=== PATIENT | female | born 1960 | race Caucasian/White ===

== ENCOUNTER 2022-04-21 18:49 | Emergency (ER) | payer BC ==
--- OUTSIDE RECORDS SUMMARY | 2022-04-21 18:54 | XMS REPORT | Continuity of Care Document ---
:[address] [facility] t Address [address] [place] [address] Care Team Providers Name Role Phone KRYSTAL PRAKASH Primary Care Physician Unavailable Enrique AMARO, Andrea Robert Attending Clinician ANDREA NUNEZ Attending Clinician Unavailable Carole Ricci Attending Clinician Blair Shankar Attending Clinician Andrea Nunez Attending Clinician Andrea Nunez Admitting Clinician Problems Condition Condition Condition Status Onset Resolution Last Treating Co mments Source Name Details Category Date Date Treatment Clinician Date , , Diagnosis Active 2017-06-21 Me moria PAIN IN PAIN IN 05-17 21:55:00 l LEFT KNEE LEFT KNEE 00:00: Herm gary Active 00 05/17/2017 [facility] Asthma Asthma Problem Resolve 2020-06-06 Mem oria (disorder) (disorder) d 00:16:33 l Resolved Tate Problem 06/06/2020 Medical [facility] Anemia Anemia Problem Active 2020-06-06 Isaiah deanne (disorder) (disorder) 00:16:33 l Active Grawn Problem 06/06/2020 Medical [facility] Hypertensi Problem Active 2020-06-06 M emoria ve Hypertensi 00:16:33 l disorder, ve [place] systemic disorder, arterial systemic (disorder) arterial (disorder) Active Problem 06/06/2020 Medical [facility] Hypothyroi Problem Active 2020-06-06 M emoria dism Hypothyroi 00:16:33 l (disorder) dism Adam n (disorder) Active Problem 06/06/2020 Medical Group,[facility] Morbid Morbid Problem Active 2020-06-06 Isaiah deanne obesity obesity 00:16:33 l (disorder) (disorder) He rmann Active Problem 06/06/2020 Medical Group,[facility] ILLNESS, ILLNESS, Diagnosis Active 2017-06-21 Memoria UNSPECIFIE UNSPECIFIE 21:55:00 l D D Active Tate [facility] History of Past Illness Condition Condition Condition Status Onset Resolution Last Treating Co mments Source Name Details Category Date Date Treatment Clinician Date Encounter Encounter Problem 2019-082020-06-04 2020-06-04 Memoria for for 0-08 00:51:48 00:51:48 l gynecologi gynecologi 22:44: He mag ronny ronny 00 examinatio examinatio n n (general) (general) (routine) (routine) without without abnormal abnormal findings findings 06/02/2020 0 Medical Group Encounter Encounter Problem 2019-082020-06-04 2020-06-04 Memoria for for 0-08 00:51:48 00:51:48 l screening screening 22:44: Herm gary mammogram mammogram 00 for for malignant malignant neoplasm neoplasm of breast of breast 06/02/2020 06/04/2020 Medical Group Postmenopa Postmenop Problem 2018-2019-04-07 2019-04-07 Memoria usa ausal 09-18 13:15:59 13:15:59 l atrophic atrophic 02:42: Adam rodriguez vaginitis vaginitis 00 09/18/2018 04/07/2019 Medical Group Other Other Problem 2017-2018-03-03 2018-03-03 M emoria obesity obesity 4- 11:28:43 11:28:43 l due to due to 18:31: Tate excess excess 00 calories calories 11/25/2017 03/03/2018 Medical Group Encounter Encounter Problem 2018-03-03 2018-03-03 Memoria for for 4- 11:28:43 11:28:43 l screening screening 14:20: Herm gary for for 00 malignant malignant neoplasm neoplasm of cervix of cervix 11/25/2017 03/03/2018 Medical Group Allergies, Adverse Reactions, Alerts Allergy Allergy Status Severity Reaction(s) Onset Inactive Treating Comm ents Source Name Type Date Date Clinician NO KNOWN Allergy Active [facility] Adhesive Adhesive Active Dee Ybarra iodine iodine Active Asia Ybarra Social History Social Habit Start Date Stop Date Quantity Comments Source Tobacco use and 2021-03-28 2021-03-[address] [facility] kes exposure 00:00:00 00:00:00 [facility] Social History 2017-11-25 2017-11-25 [facility] 14:18:35 14:18:35 Sex Ass[birth year] At [birth year] [facility] 00:00:00 00:00:00 [facility] Smoking Status Start Date Stop Date Source Former smoker 2021-03-28 00:00:00 2021-03-28 00:00:00 [facility] Medications Ordered Filled Start Stop Current Ordering Indication Dosage Frequency Signature Comments Components Source Medication Medication Date Date Medication? Clinician (SIG) Name Name montelukast Yes 10mg QD Take [address] [facility] [address] (SINGULAIR) 8-03 by mouth Luke s 10 mg 11:01: nightly. Medical tablet 22 Center lisinopril- Yes 1{tbl} QD Take [address] hydroCHLORO 8-03 tablet by Geovanna es thiazide 11:01: mouth Medical (PRINZIDE,Z 21 daily. Center ESTORETIC) 10-12.5 mg per tablet cyanocobala Yes INJECT [address] min 7-18 ML WEEKLY [facility] (VITAMIN 00:00: X 4 WEEK Medic al B-12) 1,000 [address] THEN [address] mcg/mL MONTHLY injection GIVE INSULIN SYRINGES TOO albuterol Yes INHALE ONE [facility] HFA 7-08 PUFF BU [facility] (VENTOLIN 00:00: MOUTH Medical HFA) 90 00 THREE Center mcg/actuati TIMES A on inhaler DAY methylPREDN Yes TAKE [address] ISolone 6-16 TABLETS ON [facility] (MEDROL 00:00: DAY 1 Medica l DOSEPACK) 4 00 DIRECTED Cent er mg tablet ON PACKAGE AND DECREASE BY 1 TAB EACH DAY FOR A TOTAL OF 6 DAYS levothyroxi Yes 75ug QD Take [address] ne 6-09 mcg by [facility] (SYNTHROID, 00:00: mouth Medic al LEVOTHROID) 00 daily. Center 75 MCG tablet 2019-08 Yes 2 mg = 1 Memoria Estradiol 0-08 ea, VAG, l 0.715705 18:18: q3mo, # 1 Herm gary MG/HR 00 ea, 3 Vaginal Refill(s), Ring 167.64, [Estring] cm, 06/01/20 15:23:00 CDT, Height, 118.352, kg, 06/01/20 15:23:00 CDT, Weight { Yes See Memoria (Azithromyc 1-16 Instructio l in 250 MG 02:43: ns, Take 2 He rmann Oral Tablet 00 tablets by [Zithromax] mouth the ) } Pack first day [Z-PAKS] then 1 tablet by mouth days 2-5., X 5 day, # 6 tab, 0 Refill(s), Pharmacy: [facility] #[id number] albuterol 2019-0 Yes 2 puff, Memor ia 90 mcg/inh 1-16 INHALATION l inhalation 02:43: , Q4H, PRN H ermann aerosol 00 for wheezing, # 1 ea, 1 Refill(s), Pharmacy: [facility] #[id number] predniSONE Yes 40 mg = 2 Me moria 20 mg oral 1-16 tab, PO, l tablet 02:43: Daily, X 5 Shameka nn 00 day, # 10 tab, 0 Refill(s), Pharmacy: [facility] #[id number] { No See Memoria (Azithromyc 1-16 Instructio l in 250 MG 02:25: ns, Take 2 He rmann Oral Tablet 00 tablets by [Zithromax] mouth the ) } Pack first day [Z-PAKS] then 1 tablet by mouth days 2-5., X 5 day, # 6 tab, 0 Refill(s), Pharmacy: [facility] #[id number] albuterol 2020-0 No 2 puff, Memor ia 90 mcg/inh 1-16 INHALATION l inhalation 02:25: , Q4H, PRN H ermann aerosol 00 for wheezing, # 1 ea, 1 Refill(s), Pharmacy: [facility] #[id number] predniSONE 2020-0 No 40 mg = 2 Me moria 20 mg oral -16 tab, PO, l tablet 02:25: Daily, X 5 Shameka nn 00 day, # 10 tab, 0 Refill(s), Pharmacy: [facility] #[id number] Alendronic 2020-0 No 0 Memoria acid 35 MG -16 Refill(s) l Oral Tablet 02:25: Adam n 00 icosapent 2019-0 No 0 Memoria ethyl 1000 -16 Refill(s) l MG Oral 02:25: Grawn Capsule 00 [Vascepa] Albuterol 2019-0 No 3 mL, Memoria 0.833 MG/ML 09-10 Route: l / 02:24: NEB, Grawn Ipratropium 00 Dosing Tillson Weight 0.167 MG/ML 104.602, Inhalant kg, ONCE, Solution Start [DuoNeb] date: 09/09/19 20:24:00 [facility], Stop date: 09/09/19 20:24:00 [facility] Dexamethaso 2019-0 No 10 mg, Isaiah deanne ne 09-10 Route: IM, l 02:23: ONCE, Grawn 00 Dosing Weight 104.602, kg, Priority: STAT, Start date: 09/09/19 20:23:00 [facility], Stop date: 09/09/19 20:23:00 [facility] Estradiol 0 Yes See Memoria 0.1 MG/ML 09-17 Instructio l Vaginal 20:11: ns, Insert Herm gary Cream 00 2gm [Estrace] vaginally at bedtime nightly x 2 weeks then reduce dose to twice weekly x4 weeks then reduce to weekly thereafter , # 1 tube, 3 Refill(s), Pharmacy: [facility] #[id number] ospemifene 2017- Yes 60 mg = 1 Me moria 60 mg oral 4-27 tab, PO, l tablet 18:28: Daily, # Grawn 00 90 tab, 3 Refill(s) Ospemifene 2018-0 Yes 60 mg = 1 Me moria 60 MG Oral 4-02 tab, PO, l Tablet 14:22: Daily, # Grawn [Osphena] 00 90 tab, 3 Refill(s) Acetaminoph 2016-08 Yes 2 tab, PO, Memoria en 325 MG / 0-20 Q4H, PRN l Hydrocodone 15:37: Pain Score Grawn Bitartrate 00 4-6, 0 10 MG Oral Refill(s) Tablet Aspirin 2016-08 Yes 325 mg = 1 Isaiah deanne 0-20 tab, PO, l 15:37: Q12H, 0 Grawn 00 Refill(s) Sertraline 2016-08 No Notes: Memor ia 0-20 (Same as: l 14:00: Zoloft) Tate 00 lisinopril 2016-08 No Notes: Memor ia 0-20 (Same as: l 14:00: Prinivil, Grawn 00 Zestril) Hydrochloro 2016-08 No 1 tab, Isaiah deanne thiazide 0-20 Route: PO, l 12.5 MG / 14:00: Drug Form: Ulices hathaway Lisinopril 00 TAB, 10 MG Oral Dosing Tablet Weight 103.182, kg, QAM, Start date: 06/14/17 9:00:00 CDT, Duration: 30 day, Stop date: 07/13/17 9:00:00 [facility] hydrochloro 2016-08 No Notes: Isaiah deanne thiazide 0-20 (Same as: l 14:00: Hydrodiuri Grawn 00 l). Give with food. Thyroxine 2016-08 No Notes: Memori a 0-20 Take 1 l 11:30: hour Grawn 00 before or 2 hours after meal; Enteral feeds may interefere with the absorption of this medication . (Same as:Synthro id, Levothroid ) Triiodothyr 2016-08 No Notes: Isaiah deanne onine 0-20 (Same as: l 11:30: Cytomel) Tate 00 ceFAZolin + 2016-08 No Notes: Isaiah deanne sodium 0-19 (Same As: l chloride 23:00: Ancef, Grawn 0.9% INJ 00 Kefzol) 100 mL MEDICATION WASTE Product Size: 1000 mg Product Wasted: ___ mg Ketorolac 2016-08 No 4 days Memor ia 0-19 l 23:00: MEDICATION Tate 00 WASTE Product Size: 30 mg Product Wasted: ___ mg Docusate 2016-08 No 100 mg, 1 Isaiah deanne Sodium 100 0-19 cap, l MG Oral 22:00: Route: PO, Herm gary Capsule Drug form: CAP, BID, Dosing Weight 103.182, kg, Start date: 06/13/17 17:00:00 CDT, Duration: 30 day, Stop date: 07/13/17 9:00:00 [facility] Aspirin 2016-08 No 325 mg, 1 Memor ia 0-19 tab, l 22:00: Route: PO, Grawn Drug form: TAB, Q12H, Dosing Weight 103.182, kg, For patients with risk of bleeding, Start date: 06/13/17 17:00:00 CDT, Duration: 30 day, Stop date: 07/13/17 9:00:00 [facility] Sodium 2016-08 No 25 mL, Memoria Chloride 0-19 Route: IV, l 0.9% IV 21:15: Start Grawn 00 date: 06/13/17 16:15:00 CDT, Duration: 30 day, Stop date: 07/13/17 15:14:00 [facility], PRN Line Flush BD Normal 2016-08 No Notes: Memori a Saline 0-19 (Same as: l Flush 21:15: BD Grawn 00 Posiflush) Cefazolin 2016-08 No 1 gm, Memoria 0-19 Route: l 21:00: IVPB, Drug form: INJ, Q8H, Dosing Weight 103.182, kg, Start date: 06/13/17 16:00:00 CDT, Duration: 1 doses or times, Stop date: 06/13/17 16:00:00 CDT, ABX Indication : Surgical Prophylaxi s Midazolam 2016-08 No 2 mg, Memoria 0-19 Route: l 18:53: IVP, Drug Tate form: INJ, ONCE, Dosing Weight 103.182, kg, Start date: 06/13/17 13:53:00 CDT, Stop date: 06/13/17 13:53:00 CDT Morphine 2016-08 No 2 mg, 1 Memori a 0-19 mL, Route: l 18:01: IVP, Drug Tate form: SOLN, Q3H, Dosing Weight 103.182, kg, PRN Pain Score 1-3, Start date: 06/13/17 13:01:00 CDT, Duration: 30 day, Stop date: 07/13/17 13:00:00 [facility] Ondansetron 2016-08 No Notes: Isaiah deanne 0-19 (Same as: l 18:01: Zofran) MEDICATION WASTE Product Size: 4 mg Product Wasted: ___ mg Acetaminoph 2016-08 No Notes: Do M emoria en 325 MG / 0-19 not exceed l Hydrocodone 18:01: 4gm/day of Tate Bitartrate 00 acetaminop 10 MG Oral hen. (Same Tablet as: [place] 325/10) Lactated 2016-08 No 1,000 mL, Isaiah deanne Ringers 0-19 Rate: 100 l 1,000 mL 18:01: ml/hr, Infuse over: 10 hr, Route: IV, Dosing Weight 103.182 kg, Total Volume: 1,000, Start date: 06/13/17 13:01:00 CDT, Duration: 30 day, Stop date: 07/13/17 13:00:00 [facility] ketOROLAC 2016-08 No IV, ONCE Isaiah deanne (ANES) 0-19 l 17:56: ondansetron 2016-08 No Route: IV, Memoria (ANES) 0-19 Drug form: l 17:47: INJ, ONCE, Stop date: 06/13/17 12:47:00 CDT esmolol 2016-08 No Route: IV, Isaiah deanne (ANES) 0-19 Drug form: l 17:24: INJ, ONCE, Stop date: 06/13/17 12:24:00 CDT morphine 2016-08 No Route: IV, Mem oria Sulfate 0-19 Drug form: l (ANES) + 16:58: INJ, ONCE, Her wade Premix Stop date: Diluent 06/13/17 Sodium 11:58:00 Chloride CDT 0.9% (ANES) lidocaine 2016-08 No Route: IV, Me moria (ANES) 0-19 Drug form: l 16:13: INJ, ONCE, Stop date: 06/13/17 11:13:00 CDT ropivacaine 2016-08 No Notes: Isaiah deanne 0-19 Same as: l 16:10: Naropin Diphenhydra 2016-08 No 12.5 mg, Me moria mine 019 Route: l 16:09: IVP, Drug form: INJ, Q6H, Dosing Weight 103.182, kg, PRN Itching, Start date: 06/13/17 11:09:00 CDT, Duration: 30 day, Stop date: 07/13/17 11:08:00 [facility] Glycopyrrol 2016-08 No 0.2 mg, Mem oria ate 019 Route: l 16:09: IVP, Grawn 00 Q5Min, Dosing Weight 103.182, kg, PRN Bradycardi a, Start date: 06/13/17 11:09:00 CDT, Duration: 3 doses or times, Stop date: Limited # of times Ondansetron 2016-08 No 4 mg, Memor ia 019 Route: l 16:09: IVP, ONCE, Dosing Weight 103.182, kg, PRN Nausea & Vomiting, Start date: 06/13/17 11:09:00 CDT Hydromorpho 2016-08 No 0.5 mg, Mem oria ne 0-19 Route: l 16:09: IVP, Grawn 00 Q5Min, Dosing Weight 103.182, kg, PRN Pain Score 7-10, Start date: 06/13/17 11:09:00 CDT, Duration: 4 doses or times, Stop date: Limited # of times Atropine 2016-08 No 0.2 mg, Memori a 0-19 Route: l 16:09: IVP, Tate 00 Q5Min, Dosing Weight 103.182, kg, PRN Other -See Comment, as needed; for symptomati c pulse rate < 80% of mean 50 BPM, Start date: 06/13/17 11:09:00 CDT, Duration: 30 day, Stop date: 07/13/17 10:08:00 [facility] Flumazenil 2016-08 No 0.2 mg, Isaiah deanne 019 Route: l 16:09: IVP, PRN, Tate 00 Dosing Weight 103.182, kg, PRN Benzodiaze pine Reversal, Initial dose, Start date: 06/13/17 11:09:00 CDT, Duration: 30 day, Stop date: 07/13/17 10:08:00 [facility] Naloxone 2016-08 No 0.4 mg, Memori a 0-19 Route: l 16:09: IVP, Grawn 00 Q2MIN, Dosing Weight 103.182, kg, PRN Narcotic Reversal, Start date: 06/13/17 11:09:00 CDT, Duration: 8 doses or times, Stop date: Limited # of times Hydralazine 2016-08 No 10 mg, Isaiah deanne 0-19 Route: l 16:09: IVP, Tate 00 Q20Min, Dosing Weight 103.182, kg, PRN Elevated BP, Start date: 06/13/17 11:09:00 CDT, Duration: 2 doses or times, Stop date: Limited # of times Labetalol 2016-08 No 10 mg, Memori a 0-19 Route: l 16:09: IVP, Grawn 00 Q5Min, Dosing Weight 103.182, kg, PRN Elevated BP, Start date: 06/13/17 11:09:00 CDT, Duration: 5 doses or times, Stop date: Limited # of times Morphine 2016-08 No 2 mg, Memoria 0-19 Route: l 16:09: IVP, Tate 00 Q5Min, Dosing Weight 103.182, kg, PRN Pain Score 4-6, Start date: 06/13/17 11:09:00 CDT, Duration: 5 doses or times, Stop date: Limited # of times famotidine 2016-08 No Route: IV, M emoria (ANES) 0-19 Drug form: l 16:08: INJ, ONCE, Stop date: 06/13/17 11:08:00 CDT fentaNYL 2016-08 No Route: IV, Mem oria (ANES) 0-19 Drug form: l 16:08: INJ, ONCE, Stop date: 06/13/17 11:08:00 CDT midazolam 2016-08 No Route: IV, Me moria (ANES) 0-19 Drug form: l 16:08: SOLN, ONCE, Stop date: 06/13/17 11:08:00 CDT ePHEDrine 2016-08 No Route: IV, Me moria (ANES) 0-19 Drug form: l 16:03: INJ, ONCE, Stop date: 06/13/17 11:03:00 CDT propofol 2016-08 No Route: IV, Mem oria (ANES) 0-19 Drug form: l 16:03: INJ, ONCE, Tate 00 Stop date: 06/13/17 11:03:00 CDT acetaminoph 2016-08 No Route: IV, Memoria en (ANES) 0-19 Drug form: l (ANES) 15:40: INJ, Start Shameka nn date: 06/13/17 10:40:00 CDT, Stop date: 06/13/17 11:40:00 CDT sodium 2016-08 No Route: IV, Memor ia chloride 0-19 Drug form: l 0.9% 50 ml 15:26: INJ, Start H ermann INJ (ANES) 00 date: + 06/13/17 tranexamic 10:26:00 acid (ANES) CDT, Stop (ANES) date: 06/13/17 11:26:00 CDT propofol 2016-08 No Route: IV, Mem oria (ANES) 0-19 Drug form: l (ANES) 15:18: INJ, Start Shameka nn date: 06/13/17 10:18:00 CDT, Stop date: 06/13/17 11:18:00 CDT sodium 2016-08 No Route: IV, Memor ia chloride 0-19 Drug form: l 0.9% 100 ml 15:10: INJ, Start Grawn INJ (ANES) 00 date: + ceFAZolin 06/13/17 (ANES) 10:10:00 (ANES) CDT, Stop date: 06/13/17 11:10:00 CDT LR 1000 mL 2016-08 No Route: IV, M emoria INJ (ANES) 0-19 Total l 15:07: Volume: Grawn 00 1,000, Start date: 06/13/17 10:07:00 CDT, Stop date: 06/13/17 11:07:00 CDT vancomycin 2016-08 No Route: IV, M emoria (ANES) 0-19 Drug form: l (ANES) 15:00: INJ, Start Shameka nn date: 06/13/17 10:00:00 CDT, Stop date: 06/13/17 11:00:00 CDT 72 HR 2016-08 No 1 patch, Memoria Scopolamine 0-19 Route: l 0.0139 14:00: TOP, Drug Adam n MG/HR 00 Form: Transdermal ERFILM, Patch Dosing Weight 103.182, kg, PRE OP, Start date: 06/13/17 9:00:00 CDT, Duration: 30 day, Stop date: 07/13/17 7:59:00 [facility] Cyklokapron 2016-08 No Notes: Isaiah deanne + sodium 0-19 (Same As: l chloride 05:00: Cyklokapro Her wade 0.9% INJ 00 n) 100 mL Ofirmev 2016-08 No Notes: Memoria 0-19 Infuse l 04:00: over 15 Grawn 00 minutes Do not exceed 4gm/day of acetaminop hen MEDICATION WASTE Product Size: 1000 mg Product Wasted: ___ mg vancomycin 2016-08 No 2001 mg: Me moria + sodium 0-19 infuse l chloride 04:00: over 2.5 Shameka nn 0.9% 250 mL 00 hours INJ (for IV MEDICATION set) 250 mL WASTE Product Size: 1000 mg Product Wasted: ___ mg CeleBREX 2016-08 No Notes: Memoria 0-19 NSAID. l 04:00: Please Grawn 00 check indication . Not for seizure. (Same As: CeleBREX) ceFAZolin 2016-08 No Notes: Memori a 0-19 Same as: l 04:00: Ancef Grawn 00 dexamethaso 2016-08 No Notes: Isaiah deanne ne 0-19 Concentrat l 04:00: ion: Tate 00 4mg/ml Trazodone 2016-08 Yes 100 mg = 2 Me moria Hydrochlori 0-10 tab, PO, l de 50 MG 13:23: Bedtime, 0 Her wade Oral Tablet 00 Refill(s) naproxen 2016-08 No 500 mg = 1 Mem oria 500 mg oral 0-10 tab, PO, l tablet 13:23: PRN, 0 Tate 00 Refill(s) sertraline 2016-08 Yes 100 mg = 1 M emoria 100 mg oral 0-10 tab, PO, l tablet 13:22: QAM, 0 Tate 00 Refill(s) Hydrochloro 2016-08 No 1 tab, PO, Memoria thiazide 0-10 QAM, 0 l 12.5 MG / 13:22: Refill(s) Her wade Lisinopril 00 10 MG Oral Tablet liothyronin 2016-08 Yes 5 Memori a e 5 mcg 0-10 microgram l oral tablet 13:22: = 1 tab, He rmann 00 PO, QAM, 0 Refill(s) levothyroxi 2016-08 Yes 75 Memori a ne 75 mcg 0-10 microgram l (0.075 mg) 13:22: = 1 tab, Her wade oral tablet 00 PO, QAM, 0 Refill(s) Whitney 2016-08 Yes 180 mg, Memoria 0-10 PO, QAM, 0 l 13:21: Refill(s) Grawn 00 Immunizations Ordered Immunization Filled Immunization Date Status Commen ts Source Name Name influenza virus 2017-06-14 Completed [facility] vaccine, inactivated 16:56:00 [facility] Vital Signs Vital Name Observation Time Observation Value Comments Source HEIGHT 2021-03-28 10:52:00 167.6 cm WEIGHT 2021-03-28 10:52:00 111.131 kg Heart rate 2021-07-14 09:45:00 69 /min [facility] Body height 2021-07-14 09:45:00 167.6 cm [facility] Body weight 2021-07-14 09:45:00 112.265 kg [facility] BMI 2021-07-14 09:45:00 39.95 kg/m2 [facility] Oxygen saturation in 2021-07-14 09:45:00 97 /min [facility] Arterial blood by Medical Ce nter Pulse oximetry Systolic blood 2021-07-14 09:45:00 136 mm[Hg] [facility] pressure [facility] Diastolic blood 2021-07-14 09:45:00 83 mm[Hg] [facility] Systolic (mm Hg) 2020-06-01 20:23:00 Isaiah rial Tate Diastolic (mm Hg) 2020-06-01 20:23:00 Mem orial [place] Heart Rate 2020-06-01 20:23:00 [facility] Height 2020-06-01 20:23:00 167.64 cm Memorial [place] Weight 2020-06-01 20:23:00 [facility] [place] BMI Calculated 2020-06-01 20:23:00 Memori al [place] Systolic (mm Hg) 2019-09-10 02:25:00 Isaiah rial Grawn Diastolic (mm Hg) 2019-09-10 02:25:00 Mem orial Tate Heart Rate 2019-09-10 02:25:00 [facility] [place] Temperature Oral (F) 2019-09-10 02:25:00 98.0 F [facility] [place] Weight 2019-09-10 02:25:00 [facility] [place] Height 2018-09-17 19:51:00 165.1 cm [facility] [place] Weight 2018-09-17 19:51:00 [facility] [place] BMI Calculated 2018-09-17 19:51:00 Memori al [place] Systolic (mm Hg) 2018-09-17 19:51:00 Isaiah rial Grawn Diastolic (mm Hg) 2018-09-17 19:51:00 Mem orial [place]wn Temperature Oral (F) 2018-09-17 19:51:00 97.9 F [facility] [place] Heart Rate 2018-09-17 19:51:00 [facility] [place] Height 2017-11-25 14:10:00 165.1 cm [facility] [place] Weight 2017-11-25 14:10:00 [facility] [place] Temperature Oral (F) 2017-11-25 14:10:00 98.2 F [facility] [place] Systolic (mm Hg) 2017-11-25 14:10:00 Isaiah rial Grawn Diastolic (mm Hg) 2017-11-25 14:10:00 Mem orial Gra[place] Heart Rate 2017-11-25 14:10:00 [facility] [place] BMI Calculated 2017-11-25 14:10:00 Memori al [place] Heart Rate 2017-06-14 17:00:00 [facility] [place] Systolic (mm Hg) 2017-06-14 17:00:00 Isaiah rial Tate Diastolic (mm Hg) 2017-06-14 17:00:00 Mem orial Tate Temperature Oral (F) 2017-06-14 13:00:00 98.4 F [facility] [place] Systolic (mm Hg) 2017-06-14 13:00:00 Isaiah rial Grawn Diastolic (mm Hg) 2017-06-14 13:00:00 Mem orial Tate Respitory Rate 2017-06-14 13:00:00 Memori al [place] Heart Rate 2017-06-14 13:00:00 [facility] [place] Heart Rate 2017-06-14 09:00:00 [facility] [place] Temperature Oral (F) 2017-06-14 09:00:00 98.6 F [facility] [place] Respitory Rate 2017-06-14 09:00:00 Memkia al [place] Systolic (mm Hg) 2017-06-14 09:00:00 Isaiah rial Gra[place] Diastolic (mm Hg) 2017-06-14 09:00:00 Mem orial Gra[place] Respitory Rate 2017-06-14 05:00:00 Memori al [place] Temperature Oral (F) 2017-06-14 05:00:00 98.9 F [facility] [place] BMI Calculated 2017-06-04 12:54:00 Dee al Tate Weight 2017-06-04 12:54:00 [facility] [place] Height 2017-06-04 12:54:00 165.1 cm [facility] Procedures Procedure Date / Time Performed Performing Clinician [facility] e JOINT 2021-07-17 08:19:16 Andrea Nunez [facility] Medical ASPIRATION/INJECTION Center Mammogram - screening 2018-04-12 05:00:00 Mariamakia pendleton [place] Cervical cytology 2017-11-25 05:00:00 Kamilla Kush ermann screening<sup>1</sup> Colonoscopy 2010-08-26 00:00:00 Kamilla Her wade section 1984-08-26 00:00:00 [facility] Ulices rmann Foot repair<sup>2</sup> [facility] Gastric [facility] Grawn bypass<sup>3</sup> Plan of Care Planned Activity Planned Date Details Comments Source Future Scheduled 2022-04-26 INFLUENZA VACCINE (#1) [facility] 00:00:00 [code = INFLUENZA Medical Ce nter VACCINE (#1)] Future Scheduled 2021-08-[address] [facility] 00:00:00 (12+) [code = Medical Center DEPRESSION SCREENING (12+)] Future Scheduled 2009 SHINGLES VACCINES ([address] [facility] 00:00:00 2) [code = SHINGLES Medical Center VACCINES (1 of 2)] Future Scheduled 2004 Lipid panel (procedure) [facility] 00:00:00 [code = 49066091] Medical Ce nter Future Scheduled 1980 Screening for malignant [facility] 00:00:00 neoplasm of cervix Medical C enter (procedure) [code = 728711162] Future Scheduled 1978 DTAP/TDAP/TD VACCINES [facility] 00:00:00 (1 - Tdap) [code = Medical C enter DTAP/TDAP/TD VACCINES (1 - Tdap)] Future Scheduled 1977 HEPATITIS C SCREENING [facility] 00:00:00 [code = HEPATITIS C Medical Center SCREENING] Future Scheduled 1964 COVID-19 VACCINE (#1) [facility] 00:00:00 [code = COVID-[address] VACCINE (#1)] Future Scheduled 1959 Screening for malignant [facility] 00:00:00 neoplasm of breast Medical C enter (procedure) [code = 446976766] Future Scheduled 1959 CT Colonography (combo) [facility] 00:00:00 [code = CT Colonography [facility] (combo)] Future Scheduled 1959 Screening for malignant [facility] Test 00:00:00 neoplasm of colon Medical Ce nter (procedure) [code = 212237413] Future Scheduled 1959 Screening for malignant [facility] Test 00:00:00 neoplasm of colon [facility] (procedure) [code = [id number]] Future Scheduled 1959 Screening for malignant [facility] 00:00:00 neoplasm of colon [facility] (procedure) [code = [id number]] Future Scheduled 1959 Screening for malignant [facility] 00:00:00 neoplasm of colon [facility] (procedure) [code = [id number]] Future Scheduled 1959 Sigmoidoscopy [code [facility] Start End Encounter Admission Attending Care Care Encounter Source Date/Time Date/Time Type Type Clinicians Facility Department ID 2021-07-14 2021-07-14 Office MARISSA Nunez [id number] 09:15:00 10:52:52 Visit [facility] 2021-07-14 2021-07-14 Outpatient ENRIQUE [facility] [id number] 09:14:06 10:52:52 [facility] 2021-07-14 2021-07-14 Travel [facility] [id number] [facility] 00[facility]00 00:00:00 [facility] 2021-03-28 2021-03-28 Outpatient ENRIQUE [facility] [id number] 00:00:00 00:00:00 [facility] 2020-06-02 2020-06-04 Phone nullFlavo MG [employer] [id number] Memoria 17:29:58 04:59:59 Message r [facility] Adam n 2020-06-02 2020-06-03 Outpatient MHMG [facility] [id number] 12:29:58 23:59:59 01 2020-06-01 2020-06-02 OP Founder nullFlavo [facility] [employer] 40 [id number] Memoria 20:20:00 04:59:59 Clinic r The [address] Adam n 2020-06-01 2020-06-01 Outpatient Ricci, MHMG MHMG [id number] 15:20:00 23:59:59 Caroletalia Hemphill 2020-06-01 2020-06-01 Outpatient MHIE MHIE [id number] Memoria 15:20:00 15:20:00 04 angelica Ybarra 2019-11-10 2019-11-10 Ambulatory nullFlavo [facility]MG [employer] 4 [id number] Memoria 20:20:00 20:20:00 Pre-Reg r The [address] Adam n 2019-11-10 2019-11-10 Outpatient MHIE MHIE [id number] Memoria 15:20:00 15:20:00 03 angelica RodriguezTate 2019-11-10 2019-11-10 Outpatient Ricci, MHMG MHMG [id number] 15:20:00 15:20:00 Caroletalia Hemphill 2019-09-10 2019-09-10 Outpatient nullFlavo MH Urgent [id number] Memoria 02:00:00 05:59:59 r Care 02 angelica He 2019-09-09 2019-09-09 Outpatient Kohatsu, MHMG MG [id number] 20:00:00 23:59:59 Blair Merlyn Cancino 2019-09-09 2019-09-09 Outpatient MHIE MHIE [id number] Memoria 20:00:00 20:00:00 02 angelica Ybarra 2018-09-17 2018-09-18 Outpatient nullFlavo [facility]MG TRIAGE LICENSED PRACTICAL NURSE 4 [id number] Memoria 19:50:00 05:59:59 r The 01 [facility] Adam 2018-09-17 2018-09-17 Outpatient Ricci, MHMG MG [id number] 13:50:00 23:59:59 Carole Honorio [facility] 2018-09-17 2018-09-17 Outpatient Ricci, MHMG MG [id number] 13:50:00 23:59:59 Carole [facility] 2018-09-17 2018-09-17 Outpatient MHIE MHIE [id number] Memoria 13:50:00 13:50:00 01 angelica Ybarra 2017-12-23 2017-12-25 Outside nullFlavo MG TRIAGE LICENSED PRACTICAL NURSE [id number] Memoria 17:19:00 04:59:59 Medical r The 00 [facility] Adam 2017-12-23 2017-12-24 Outpatient MG MG [id number] 12:19:00 23:59:59 00 2017-12-23 2017-12-24 Outpatient MHMG MG [id number] 12:19:00 23:59:59 00 2017-12-09 2017-12-10 Outpatient nullFlavo [facility] [id number] Memoria 13:39:00 04:59:00 r Outpatient 00 l Imaging The [facility] 2017-12-09 2017-12-09 Outpatient Ricci, MH37 [facility] [id number] 08:39:00 23:59:00 Carole Latoya [facility] 2017-11-25 2017-11-26 Outpatient nullFlavo MG TRIAGE LICENSED PRACTICAL NURSE 4 [id number] Memoria 14:00:00 04:59:59 r The 00 [facility] 2017-11-25 2017-11-25 Outpatient Ricci, [facility] [id number] 09:00:00 23:59:59 Carole 00 Joby 2017-11-25 2017-11-25 Outpatient REJI [facility] [id number] Memoria 09:00:00 09:00:00 00 l Tate 2017-06-13 2017-06-14 Inpatient Darcy [facility] [id number] Memoria 11:41:00 19:48:00 r Tate 00 l [facility] 2017-06-13 2017-06-14 Outpatient Enrique, [facility] [id number] 06:41:00 14:48:00 Andrea Robert 00 Results Test Description Test Time Test Comments Results Result Comments Source CHEM PANEL 2017-06-14 10:10:00 Test Item Value Reference Range Interpretation Comme nts Globulin (test code = Globulin) 2.1 2.7-4.2 [facility]2017-10-20 10:10:00 Test Item Value Reference Range Interpretation Comments Total Protein (test code = Total 5.1 6.4-8.4 Protein) [id number] 10:10:00 Test Item Value Reference Range Interpretation Comments Hct (test code = Hct) 29.5 36.0-48.0 [id number] 10:10:00 Test Item Value Reference Range Interpretation Comments Hgb (test code = Hgb) 9.7 12.0-16.0 [facility]2017-10-20 10:10:00 Test Item Value Reference Range Interpretation Comments eGFR (test code = eGFR) 84 [facility]2017-10-20 10:10:00 Test Item Value Reference Range Interpretation Comments Creatinine Lvl (test code = Creatinine 0.78 0.50-1.40 Lvl) [facility]2017-10-20 10:10:00 Test Item Value Reference Range Interpretation Comments Glucose Lvl (test code = Glucose Lvl) 98 70-99 [facility]2017-10-20 10:10:00 Test Item Value Reference Range Interpretation Comments AST (test code = AST) 13 See_Comment [Auto mated message] The system which ge nerated this result transmit rose reference range : <=37. The reference range was not used to interpr et this result as gregory l/abnormal. [facility]2017-10-20 10:10:00 Test Item Value Reference Range Interpretation Comments ALT (test code = ALT) 17 See_Comment [Auto mated message] The system which ge nerated this result transmit rose reference range : <=65. The reference range was not used to interpr et this result as gregory l/abnormal. [facility]2017-10-20 10:10:00 Test Item Value Reference Range Interpretation Comments CO2 (test code = CO2) 27 24-32 [facility]2017-10-20 10:10:00 Test Item Value Reference Range Interpretation Comments Potassium Lvl (test code = Potassium 4.3 3.5-5.1 Lvl) [facility]2017-10-20 10:10:00 Test Item Value Reference Range Interpretation Comments Chloride Lvl (test code = Chloride Lvl) 104 95-109 [facility]2017-10-20 10:10:00 Test Item Value Reference Range Interpretation Comments Sodium Lvl (test code = Sodium Lvl) 140 135-145 [facility]2017-10-20 10:10:00 Test Item Value Reference Range Interpretation Comments BUN (test code = BUN) 16 7-22 [facility]2017-10-20 10:10:00 Test Item Value Reference Range Interpretation Comments Albumin Lvl (test code = Albumin Lvl) 3.0 3.5-5.0 [facility]2017-10-20 10:10:00 Test Item Value Reference Range Interpretation Comments B/C Ratio (test code = B/C Ratio) 21 6-25 [facility]2017-10-20 10:10:00 Test Item Value Reference Range Interpretation Comments Calcium Lvl (test code = Calcium Lvl) 8.1 8.5-10.5 [facility]2017-10-20 10:10:00 Test Item Value Reference Range Interpretation Comments AGAP (test code = AGAP) 13.3 10.0-20.0 [facility]2017-10-20 10:10:00 Test Item Value Reference Range Interpretation Comments Bili Total (test code = Bili Total) 1.4 0.2-1.3 [facility]2017-10-20 10:10:00 Test Item Value Reference Range Interpretation Comments Alk Phos (test code = Alk Phos) 64 39-136 [facility] [employer] [id number] 10:10:00 Test Item Value Reference Range Interpretation Comments A/G Ratio (test code = A/G Ratio) 1.4 0.7-1.6 [facility] [employer] [facility] [id number] 12:35:00 Test Item Value Reference Range Interpretation Comments Antibody Scrn (test Negative (06/13/17 code = Antibody Scrn) 7:35 AM) [facility] [employer] [facility] [id number] 12:35:00 Test Item Value Reference Range Interpretation Comments ABO/Rh (test code = ABO/Rh) A POS [facility] - [id number] 13:40:00 Test Item Value Reference Range Interpretation Comments MRSA by PCR (test Negative (06/04/17 8:40 code = MRSA by PCR) AM) [facility] [employer] [id number] 13:40:00 Test Item Value Reference Range Interpretation Comments B/C Ratio (test code = B/C Ratio) 22 6-25 [facility] [employer] [id number] 13:40:00 Test Item Value Reference Range Interpretation Comments AGAP (test code = AGAP) 15.2 10.0-20.0 [facility] [employer] [id number] 13:40:00 Test Item Value Reference Range Interpretation Comments A/G Ratio (test code = A/G Ratio) 1.3 0.7-1.6 [facility] [employer] [id number] 13:40:00 Test Item Value Reference Range Interpretation Comments Globulin (test code = Globulin) 3.1 2.7-4.2 [facility] [employer] [id number] 13:40:00 Test Item Value Reference Range Interpretation Comments eGFR (test code = eGFR) 92 [facility] [employer] [id number] 13:40:00 Test Item Value Reference Range Interpretation Comments AST (test code = AST) 20 See_Comment [Auto mated message] The system which ge nerated this result transmit rose reference range : <=37. The reference range was not used to interpr et this result as gregory l/abnormal. [facility] [employer]2017-10-10 13:40:00 Test Item Value Reference Range Interpretation Comments ALT (test code = ALT) 17 See_Comment [Auto mated message] The system which ge nerated this result transmit rose reference range : <=65. The reference range was not used to interpr et this result as gregory l/abnormal. [facility]2017-10-10 13:40:00 Test Item Value Reference Range Interpretation Comments Creatinine Lvl (test code = Creatinine 0.72 0.50-1.40 Lvl) [facility]2017-10-10 13:40:00 Test Item Value Reference Range Interpretation Comments Glucose Lvl (test code = Glucose Lvl) 77 70-99 [facility]2017-10-10 13:40:00 Test Item Value Reference Range Interpretation Comments Albumin Lvl (test code = Albumin Lvl) 4.1 3.5-5.0 [facility]2017-10-10 13:40:00 Test Item Value Reference Range Interpretation Comments Calcium Lvl (test code = Calcium Lvl) 9.0 8.5-10.5 [facility]2017-10-10 13:40:00 Test Item Value Reference Range Interpretation Comments Sodium Lvl (test code = Sodium Lvl) 142 135-145 [facility]2017-10-10 13:40:00 Test Item Value Reference Range Interpretation Comments Potassium Lvl (test code = Potassium 4.2 3.5-5.1 Lvl) [facility]2017-10-10 13:40:00 Test Item Value Reference Range Interpretation Comments BUN (test code = BUN) 16 7-22 [facility]2017-10-10 13:40:00 Test Item Value Reference Range Interpretation Comments CO2 (test code = CO2) 27 24-32 [facility]2017-10-10 13:40:00 Test Item Value Reference Range Interpretation Comments Chloride Lvl (test code = Chloride Lvl) 104 95-109 [facility]2017-10-10 13:40:00 Test Item Value Reference Range Interpretation Comments Total Protein (test code = Total 7.2 6.4-8.4 Protein) [facility]2017-10-10 13:40:00 Test Item Value Reference Range Interpretation Comments Bili Total (test code = Bili Total) 1.0 0.2-1.3 [facility]2017-10-10 13:40:00 Test Item Value Reference Range Interpretation Comments Alk Phos (test code = Alk Phos) 85 39-136 [id number] 13:40:00 Test Item Value Reference Range Interpretation Comments INR (test code = INR) 0.91 0.85-1.17 [id number] 13:40:00 Test Item Value Reference Range Interpretation Comments PT (test code = PT) 12.5 s 12.0-14.7 [facility]anoC[id number] 13:40:00 Test Item Value Reference Range Interpretation Comments PTT (test code = PTT) 29.3 s 22.9-35.8 [facility]anoHecillxYNQFIVIVAN7577-97-84 13:40:00 Test Item Value Reference Range Interpretation Comments Eosinophils # (test code 0.1 See_Comment [A utomated message] The = Eosinophils #) system whic h generated this result tra nsmitted reference range : <=0.5. The reference r lakshmi was not used to int erpret this result as normal/abnormal . [id number] 13:40:00 Test Item Value Reference Range Interpretation Comments Eosinophils (test code = 1.7 See_Comment [A utomated message] The Eosinophils) system which ge nerated this result tra nsmitted reference range : <=4.0. The reference r lakshmi was not used to int erpret this result as normal/abnormal . [id number] 13:40:00 Test Item Value Reference Range Interpretation Comments Monocytes (test code = Monocytes) 9.3 2.0-12.0 [id number] 13:40:00 Test Item Value Reference Range Interpretation Comments Basophils (test code = 0.5 See_Comment [Aut omated message] The Basophils) system which ge nerated this result tra nsmitted reference range : <=1.0. The reference r lakshmi was not used to int erpret this result as normal/abnormal . [facility]a[id number] 13:40:00 Test Item Value Reference Range Interpretation Comments Lymphocytes # (test code = Lymphocytes 1.5 1.0-5.5 #) [id number] 13:40:00 Test Item Value Reference Range Interpretation Comments Segs-Bands # (test code = Segs-Bands #) 3.8 1.5-8.1 [facility]anoAnzapnoCEBYYSQYMY5684-24-16 13:40:00 Test Item Value Reference Range Interpretation Comments Monocytes # (test code 0.6 See_Comment [Aut omated message] The = Monocytes #) system which generated this result tra nsmitted reference range : <=0.8. The reference r lakshmi was not used to int erpret this result as normal/abnormal . [id number] 13:40:00 Test Item Value Reference Range Interpretation Comments Lymphocytes (test code = Lymphocytes) 24.8 20.0-40.0 [facility]anoPvshqxbBXWUIKJEFG3322-10-91 13:40:00 Test Item Value Reference Range Interpretation Comments Segs (test code = Segs) 63.7 45.0-75.0 [facility] PlanoDakfaxmVLGBTSCTDC1429-92-06 13:40:00 Test Item Value Reference Range Interpretation Comments MPV (test code = MPV) 8.2 7.4-10.4 [facility]anoSlkqjuvNNGNNJLBGW1344-30-06 13:40:00 Test Item Value Reference Range Interpretation Comments MCHC (test code = MCHC) 32.9 32.0-36.0 [facility]a[id number] 13:40:00 Test Item Value Reference Range Interpretation Comments MCH (test code = MCH) 27.8 pg 27.0-31.0 [id number] 13:40:00 Test Item Value Reference Range Interpretation Comments Platelet (test code = Platelet) 225 133-450 [facility]anoGgwgpsjWLYHNBENAT2417-18-51 13:40:00 Test Item Value Reference Range Interpretation Comments MCV (test code = MCV) 84.5 80.0-98.0 [facility]anoDmitwmtNWBMQZNIPW8646-91-34 13:40:00 Test Item Value Reference Range Interpretation Comments RDW (test code = RDW) 13.9 11.5-14.5 [facility]anoPpssexqCZGOYMAGUC7785-68-70 13:40:00 Test Item Value Reference Range Interpretation Comments WBC (test code = WBC) 5.9 3.7-10.4 [facility] PlanoVrbkncsMIKKTIOTUV8695-48-66 13:40:00 Test Item Value Reference Range Interpretation Comments RBC (test code = RBC) 4.70 4.20-5.40 [facility]WC[facility]129[facility]-06 13:40:00 Test Item Value Reference Range Interpretation Comments Hgb (test code = Hgb) 13.1 12.0-16.0 [facility]anoLopcxzlXRTEVKMEQT3538-07-13 13:40:00 Test Item Value Reference Range Interpretation Comments Hct (test code = Hct) 39.7 36.0-48.0 [facility] AND [id number] 13:40:00 Test Item Value Reference Range Interpretation Comments UA Ketones (test code = UA Ketones) Negative [facility] AND [id number] 13:40:00 Test Item Value Reference Range Interpretation Comments UA Urobilinogen (test code = UA <=1.0 mg/dL 0.1-1.0 Urobilinogen) [facility] AND [id number] 13:40:00 Test Item Value Reference Range Interpretation Comments Micro? (test code = Performed *NA*(06/04/17 Micro?) 8:40 AM) [facility] AND [id number] 13:40:00 Test Item Value Reference Range Interpretation Comments UA Nitrite (test code Negative (06/04/17 8:40 = UA Nitrite) AM) [facility] AND [id number] 13:40:00 Test Item Value Reference Range Interpretation Comments UA Bili (test code = Negative *NA*(06/04/17 UA Bili) 8:40 AM) [facility] AND [id number] 13:40:00 Test Item Value Reference Range Interpretation Comments UA Blood (test code = Negative (06/04/17 8:40 UA Blood) AM) [facility] AND [id number] 13:40:00 Test Item Value Reference Range Interpretation Comments UA RBC (test code = 1 See_Comment [Automa rose message] The UA RBC) system which ge nerated this result transmit rose reference range : <=2. The reference range was not used to interpr et this result as gregory l/abnormal. [facility] AND [id number] 13:40:00 Test Item Value Reference Range Interpretation Comments UA Bacteria (test code = UA Occasional /HPF Bacteria) [facility] AND [id number] 13:40:00 Test Item Value Reference Range Interpretation Comments UA Sq Epi (test code = UA Sq Epi) Few /LPF [facility] AND [id number] 13:40:00 Test Item Value Reference Range Interpretation Comments UA Leuk Est (test Moderate *ABN*(06/04/17 code = UA Leuk Est) 8:40 AM) [facility] AND [id number] 13:40:00 Test Item Value Reference Range Interpretation Comments UA Turbidity (test code = Clear (06/04/17 8:40 UA Turbidity) AM) [facility] AND [id number] 13:40:00 Test Item Value Reference Range Interpretation Comments UA Spec Grav (test code = UA Spec Grav) 1.023 [facility] AND [id number] 13:40:00 Test Item Value Reference Range Interpretation Comments UA WBC (test code = 3 See_Comment [Automa rose message] The UA WBC) system which ge nerated this result transmit rose reference range : <=5. The reference range was not used to interpr et this result as gregory l/abnormal. [facility] AND [id number] 13:40:00 Test Item Value Reference Range Interpretation Comments UA Glucose (test code = UA Negative mg/dL Glucose) [facility] AND [id number] 13:40:00 Test Item Value Reference Range Interpretation Comments UA pH (test code = UA pH) 5.0 5.0-8.0 [facility] AND [id number] 13:40:00 Test Item Value Reference Range Interpretation Comments UA Protein (test code = UA Negative mg/dL Protein) [facility] AND [id number] 13:40:00 Test Item Value Reference Range Interpretation Comments UA Mucus (test code = UA Mucus) Few /LPF [facility] AND [id number] 13:40:00 Test Item Value Reference Range Interpretation Comments UA Color (test code = Yellow *NA*(06/04/17 UA Color) 8:40 AM) [facility]
[2022-04-21] MEDS ORDERED: IBUPROFEN 400 MG TAB ONE (19:28)
--- NOTE | 2022-04-21 20:17 | RAD REPORT ---
EXAM DESCRIPTION: RAD - Wrist Right 3 View - 04/21/2022 7:44 pm CLINICAL HISTORY: PAIN COMPARISON: No comparisons FINDINGS/IMPRESSION: Distal radial impaction fracture with intra-articular extension. Slight dorsal tilt of the radius. Fracture is only mildly displaced.
--- NOTE | 2022-04-21 20:18 | RAD REPORT ---
EXAM DESCRIPTION: RAD - Forearm Right - 04/21/2022 7:44 pm CLINICAL HISTORY: PAIN COMPARISON: No comparisons FINDINGS/IMPRESSION: Distal radial impaction fracture with intra-articular extension. No other fract ures identified
--- NOTE | 2022-04-21 20:31 | EDPHYS ---
Physician Documentation [facility] Name: Linda Desir Age: 61 yrs Sex: Female : 1960 Arrival Date: 04/21/2022 Time: 18:53 Bed 12 Private MD: ED Physician Jose Reyna HPI: 04/21 20:33 This 61 yrs old Female presents to ER via Ambulatory with complaints of Wrist Injury, kb InQuicker. 20:33 The patient or guardian reports decreased range of motion, injury, pain, swelling, kb tenderness. The complaints affect the right wrist diffusely. Context: The problem was sustained outdoors, resulted from a fall, on an outstretched hand. Onset: The symptoms/episode began/occurred 5 day(s) ago. Modifying factors: The symptoms are alleviated by nothing, the symptoms are aggravated by movement. Associated signs and symptoms: The patient has no apparent associated signs or symptoms. The patient has not experienced similar symptoms in the past. The patient has not recently seen a physician. Historical: - Allergies: 18:56 No Known Allergies; hb - PSHx: 18:56 section; Tonsillectomy; Gastric Bypass; hb - Immunization history:: Adult Immunizations up to date. - Social history:: Smoking status: Patient denies any tobacco usage or history of. ROS: 20:32 Constitutional: Negative for fever, chills, and weight loss. kb 20:32 MS/extremity: Positive for decreased range of motion, ecchymosis, pain, swelling, tenderness, of the right wrist. 20:32 All other systems are negative. Exam: 20:32 Constitutional: This is a well developed, well nourished patient who is awake, alert, kb and in no acute distress. Head/Face: Normocephalic, atraumatic. ENT: Moist Mucous membranes Respiratory: Respirations even and unlabored. No increased work of breathing. Talking in full sentences Skin: Warm, dry with normal turgor. Normal color. Neuro: Awake and alert, GCS 15, oriented to person, place, time, and situation. Moves all extremities. Normal gait. Psych: Awake, alert, with orientation to person, place and time. Behavior, mood, and affect are within normal limits. 20:32 Musculoskeletal/extremity: Extremities: grossly normal except: noted in the right wrist: decreased ROM, ecchymosis, pain, swelling, tenderness, ROM: limited active range of motion, limited active range of motion due to pain, Circulation is intact in all extremities. Sensation intact. Vital Signs: 18:55 BP 151 / 74; Pulse 76; Resp 20; Temp 98.5; Pulse Ox 100% on R/A; Weight 113.4 kg; hb Height 5 ft. 6 in. (167.64 cm); Pain 6/10; 18:55 Body Mass Index 40.35 (113.40 kg, 167.64 cm) hb MDM: 19:11 Patient medically screened. kb 20:32 Data reviewed: vital signs, nurses notes. Data interpreted: Pulse oximetry: on room air kb is 100 %. Interpretation: normal. Counseling: I had a detailed discussion with the patient and/or guardian regarding: the historical points, exam findings, and any diagnostic results supporting the discharge/admit diagnosis, radiology results, the need for outpatient follow up, a orthopedic surgeon, to return to the emergency department if symptoms worsen or persist or if there are any questions or concerns that arise at home. 04/21 18:57 Order name: XRAY Wrist RIGHT 3 view; Complete Time: 20:20 rn 04/21 19:12 Order name: Forearm Right XRAY; Complete Time: 20:20 kb 04/21 20:21 Order name: Sugar Tong Forearm Splint; Complete Time: 20:54 kb 04/21 20:21 Order name: Sling; Complete Time: 20:54 kb Administered Medications: 19:23 Drug: Ibuprofen 800 mg Route: PO; hb Disposition: 04/22 17:26 Co-signature as Attending Physician, Jose Reyna MD. rn Disposition Summary: 04/21/22 20:31 Discharge Ordered Location: Home kb Condition: Stable kb Diagnosis - Distal radius impaction fracture - right kb Followup: kb - With: Emergency Department - When: As needed - Reason: Worsening of condition Followup: kb - With: Private Physician - When: 2 - 3 days - Reason: Recheck today's complaints, Continuance of care, Re-evaluation by your physician Discharge Instructions: - Discharge Summary Sheet kb - Radial Fracture kb Forms: - Medication Reconciliation Form kb - Thank You Letter kb - Antibiotic Education kb - Prescription Opioid Use kb Prescriptions: - Diclofenac Sodium 75 mg Oral tablet,delayed release (DR/EC) - take 1 tablet by ORAL route 2 times per day As needed; 30 tablet; Refills: 0, kb Product Selection Permitted Signatures: Dispatcher [employer] Sayra Kerns, Jose Bowens MD MD rn Anay Love RN RN
--- NOTE | 2022-04-21 20:31 | ER ---
Nurse's Notes [facility] Name: Linda Desir Age: 61 yrs Sex: Female : 1960 Arrival Date: 04/21/2022 Time: 18:53 Bed 12 Private MD: Diagnosis: Distal radius impaction fracture - right Presentation: 04/21 18:55 Chief complaint: Right wrist pain after mechanical fall from standing 5 days ago. hb Coronavirus screen: At this time, the client does not indicate any symptoms associated with coronavirus-19. Ebola Screen: No symptoms or risks identified at this time. Initial Sepsis Screen: Does the patient meet any 2 criteria? No. Patient's initial sepsis screen is negative. Does the patient have a suspected source of infection? No. Patient's initial sepsis screen is negative. Risk Assessment: Do you want to hurt yourself or someone else? Patient reports no desire to harm self or others. Onset of symptoms was April 16, 2022. 18:55 Method Of Arrival: Ambulatory hb 18:55 Acuity: CLAIRE 4 hb Historical: - Allergies: 18:56 No Known Allergies; hb - PSHx: 18:56 section; Tonsillectomy; Gastric Bypass; hb - Immunization history:: Adult Immunizations up to date. - Social history:: Smoking status: Patient denies any tobacco usage or history of. Screenin:00 Abuse screen: Denies threats or abuse. Nutritional screening: No deficits noted. bb Tuberculosis screening: No symptoms or risk factors identified. Fall Risk None identified. Assessment: 21:00 General: Appears in no apparent distress. uncomfortable, Behavior is calm, cooperative. bb Pain: Complains of pain in right wrist. Neuro: Level of Consciousness is awake, alert, obeys commands, Oriented to person, place, time, situation. Cardiovascular: Capillary refill < 3 seconds Patient's skin is warm and dry. Respiratory: Airway is patent Respiratory effort is even, unlabored, Respiratory pattern is regular. GI: No signs and/or symptoms were reported involving the gastrointestinal system. Derm: Skin is pink, warm \T\ dry. Musculoskeletal: Capillary refill < 3 seconds, pt seen by this RN at discharge pt verbalized understanding of and agrees to plan of care discharge instructions given pt ambulated with steady gait to exit accompanied by spouse. Vital Signs: 18:55 BP 151 / 74; Pulse 76; Resp 20; Temp 98.5; Pulse Ox 100% on R/A; Weight 113.4 kg; hb Height 5 ft. 6 in. (167.64 cm); Pain 6/10; 18:55 Body Mass Index 40.35 (113.40 kg, 167.64 cm) hb ED Course: 18:53 Patient arrived in ED. rg4 18:56 Triage completed. hb 18:56 Arm band placed on. hb 18:59 Sayra Martini [facility]C [facility] kb 18:59 Jose Reyna MD is Attending Physician. kb 19:45 XRAY Wrist RIGHT 3 view In Process Unspecified. EDMS 19:45 Forearm Right XRAY In Process Unspecified. EDMS 20:54 Orthoglass splint: Sugar tong splint applied on right arm. Sling applied to. mh5 21:00 Patient has correct armband on for positive identification. Adult w/ patient. bb 21:00 No provider procedures requiring assistance completed. Patient did not have IV access bb during this emergency room visit. Administered Medications: 19:23 Drug: Ibuprofen 800 mg Route: PO; hb Medication: 21:00 VIS not applicable for this client. bb Outcome: 20:31 Discharge ordered by MD. kb 21:02 Discharged to home ambulatory, with family. bb 21:02 Condition: stable 21:02 Discharge instructions given to patient, Instructed on discharge instructions, follow up and referral plans. medication usage, Demonstrated understanding of instructions, follow-up care, medications, Prescriptions given X 1. 21:03 Patient left the ED. bb Signatures: Dispatcher [employer] EDMS Sayra Martini FNP-C FNP-Ckb Ballard, Brenda, RN RN bb Anay Love, TUE RN Nina Eubanks 4 Shireen Araujo [facility]
[2022-04-21 23:37] VITALS: BP 151/74; TEMP 98.5; O2SAT 100
== END 2022-04-21 21:03 | disposition home or self-care (01) ==
LOC: ER 18:49
PROC: 2W3CX1Z Immobilization of Right Lower Arm using Splint (ICD-10-PCS; principal; 2022-04-21)
DX: S52.501A Unspecified fracture of the lower end of right radius, initial encounter for closed fracture (principal)
CPT/HCPCS: 99284